=== PATIENT | female | born 1960 | race Caucasian/White ===

== ENCOUNTER 2016-11-25 17:40 | Emergency (ER) | payer MEDICARE ==
[2016-11-25 20:19] LABS: BILIRUBIN NEGATIVE (NEGATIVE); BLOOD NEGATIVE Ery/uL (NEGATIVE); CLARITY CLEAR (CLEAR); COLOR YELLOW (YELLOW); GLUCOSE (U) 2+ mg/dL (NORMAL); KETONE (U) NEGATIVE (NEGATIVE); LEUKOCYTES NEGATIVE Leu/uL (NEGATIVE); NITRITE NEGATIVE (NEGATIVE); PROTEIN NEGATIVE (NEGATIVE); SPECIFIC GRAVITY 1.025 (1.001-1.030); UROBILINOGEN 0.2 mg/dL (0.2-1.0)
== END 2016-11-25 20:51 | disposition home or self-care (01) ==
LOC: FER 17:40
PROVIDERS: Emergency Medicine
DX: M62.830 Muscle spasm of back (principal); I10 Essential (primary) hypertension; E11.9 Type 2 diabetes mellitus without complications; E03.9 Hypothyroidism, unspecified; Z88.2 Allergy status to sulfonamides; Z79.84 Long term (current) use of oral hypoglycemic drugs; Z79.899 Other long term (current) drug therapy
CPT/HCPCS: 81003; 99284

== ENCOUNTER 2020-10-10 01:49 | Emergency (ER) | payer MEDICARE, OTHER ==
[~2020-10-10 01:49] MED LIST: HYDROCODON-ACE1 EAC4 PO; MEDROL 4MG DOSEP4 MG PO; VIBRAMYCIN100 MG PO; ZOFRAN8 MG PO
[2020-10-10 02:25] LABS: BILIRUBIN NEGATIVE (NEGATIVE); BLOOD NEGATIVE Ery/uL (NEGATIVE); CLARITY CLEAR (CLEAR); COLOR YELLOW (YELLOW); GLUCOSE (U) 3+ mg/dL (NORMAL); LEUKOCYTES NEGATIVE Leu/uL (NEGATIVE); NITRITE NEGATIVE (NEGATIVE); PROTEIN NEGATIVE (NEGATIVE); SPECIFIC GRAVITY <=1.005 (1.001-1.030); UROBILINOGEN 0.2 mg/dL (0.2-1.0)
[2020-10-10 03:03] LABS: BASOPHIL 0.7 % (0-2); EOSINOPHIL 5.3 % (0-5); HCT 39.9 % (37.0-47.0); HGB 13.7 g/dl (12.5-16.0); LYMPHOCYTE 46.9 % (15-48); MCHC 34.3 g/dL (32.0-36.0); MCV 87.5 fL (78.0-100.0); MONOCYTE 6.1 % (0-12); MPV 10.3 fL (6.0-9.5); NEUTROPHIL 40.1 % (41-80); NRBC 0; PLT 238 K/uL (150-400); RBC 4.56 M/uL (4.20-5.40); RDW 12.1 % (11.5-14.0); WBC 7.4 K/uL (4.0-10.5)
[2020-10-10 03:08] LABS: ALBUMIN 3.6 g/dL (3.4-5.0); BILIRUBIN - TOTAL 0.6 mg/dL (0.2-1.0); BUN/CREAT RATIO (CALC) 9.8 RATIO; CREATININE 0.82 mg/dL (0.51-0.95); GLOBULIN (CALCULATION) 3.6 g/dL; POTASSIUM 3.9 mmol/L (3.5-5.1); TOTAL PROTEIN 7.2 g/dL (6.4-8.2)
== END 2020-10-10 03:31 | disposition home or self-care (01) ==
LOC: FER 01:49
PROVIDERS: Emergency Medicine
DX: R10.9 Unspecified abdominal pain (principal); R81 Glycosuria; I10 Essential (primary) hypertension; E11.9 Type 2 diabetes mellitus without complications; Z88.1 Allergy status to other antibiotic agents; Z90.49 Acquired absence of other specified parts of digestive tract
CPT/HCPCS: 36415; 80053; 81003; 85025; 99284

== ENCOUNTER 2021-01-29 22:18 | Emergency (ER) | payer MEDICARE, OTHER ==
[2021-01-29 23:08] LABS: BILIRUBIN NEGATIVE (NEGATIVE); BLOOD NEGATIVE Ery/uL (NEGATIVE); CLARITY CLEAR (CLEAR); COLOR YELLOW (YELLOW); GLUCOSE (U) 3+ mg/dL (NORMAL); LEUKOCYTES NEGATIVE Leu/uL (NEGATIVE); NITRITE NEGATIVE (NEGATIVE); PROTEIN NEGATIVE (NEGATIVE); SPECIFIC GRAVITY 1.015 (1.001-1.030); UROBILINOGEN 0.2 mg/dL (0.2-1.0); pH 5.5 (5.0-9.0)
[2021-01-29 23:11] LABS: BASOPHIL 0.7 % (0-2); EOSINOPHIL 4.3 % (0-5); HCT 43.6 % (37.0-47.0); HGB 14.8 g/dl (12.5-16.0); LYMPHOCYTE 37.2 % (15-48); MCH 29.3 pg (25.0-31.0); MCHC 33.9 g/dL (32.0-36.0); MCV 86.3 fL (78.0-100.0); MONOCYTE 7.1 % (0-12); MPV 10.5 fL (6.0-9.5); NEUTROPHIL 50.6 % (41-80); NRBC 0; PLT 265 K/uL (150-400); RBC 5.05 M/uL (4.20-5.40); RDW 12.6 % (11.5-14.0); WBC 7.2 K/uL (4.0-10.5)
[2021-01-29 23:21] LABS: INR 0.96 (0.9-1.2); PROTHROMBIN TIME 12.2 SECONDS (11.8-13.4); PTT 24.8 SECONDS (24.4-34.7)
[2021-01-29 23:21] LABS: AMPHETAMINES NEGATIVE (NEGATIVE); BARBITURATES NEGATIVE (NEGATIVE); ECSTASY (MDMA) NEGATIVE (NEGATIVE); MARIJUANA (THC) NEGATIVE (NEGATIVE); METHADONE NEGATIVE (NEGATIVE); OPIATES NEGATIVE (NEGATIVE); OXYCODONE NEGATIVE (NEGATIVE)
[2021-01-29 23:30] LABS: ALBUMIN 3.8 g/dL (3.4-5.0); BILIRUBIN - TOTAL 0.8 mg/dL (0.2-1.0); BUN/CREAT RATIO (CALC) 19.4 RATIO; CREATININE 0.98 mg/dL (0.51-0.95); GLOBULIN (CALCULATION) 3.8 g/dL; POTASSIUM 4.2 mmol/L (3.5-5.1); TOTAL PROTEIN 7.6 g/dL (6.4-8.2)
[2021-01-30] MEDS ORDERED: CEPHALEXIN500 MG PO (08:30)
== END 2021-01-30 09:25 | disposition home or self-care (01) ==
LOC: FER 22:18
PROVIDERS: Emergency Medicine Emergency Medical Services
DX: R47.1 Dysarthria and anarthria (principal); E11.65 Type 2 diabetes mellitus with hyperglycemia; M54.9 Dorsalgia, unspecified; R30.0 Dysuria; I49.3 Ventricular premature depolarization; I10 Essential (primary) hypertension; J44.9 Chronic obstructive pulmonary disease, unspecified; Z87.820 Personal history of traumatic brain injury; Z79.82 Long term (current) use of aspirin; Z88.2 Allergy status to sulfonamides; R29.700 NIHSS score 0; Z79.899 Other long term (current) drug therapy; Z79.84 Long term (current) use of oral hypoglycemic drugs
CPT/HCPCS: 36415; 70450; 70551; 71045; 80053; 80305; 81003; 82550; 84484; 85025; 85610; 85730; 93005; J2060; J7030; Q9967